=== PATIENT | male | born 1970 | race Hispanic/Latino ===

== ENCOUNTER 2018-09-19 16:24 | Inpatient (IN) | payer MEDICARE ==
--- NOTE | 2018-09-19 16:48 | C.PDOC ---
History Of Present Illness 48 y/o male presents to ED requesting detox from ETOH. Patient reports last drink was last night and denies chest pain, nausea, vomiting, diarrhea, SI/HI or any other complaints at this time. ekg 73, nsr, no stemi pending ASA and tylenol level, pt is medically clear labs unremarkable medically clear No signs of etoh withdrawal. appreciate consult w/ PES: to admit to Dr. Dewey Time Seen by Provider: 09/19/18 16:48 Chief Complaint (Nursing): Substance Abuse History Per: Patient History/Exam Limitations: no limitations Onset/Duration Of Symptoms: Waxing/Waning Current Symptoms Are (Timing): Still Present Suicide/Self Injury Attempted (Context): None Modifying Factor(s): Alcohol Past Medical History Reviewed: Historical Data, Nursing Documentation, Vital Signs Vital Signs: Last Vital Signs Temp 98.8 F 09/19/18 16:42 Pulse 96 H 09/19/18 16:42 Resp 19 09/19/18 16:42 BP 159/97 H 09/19/18 16:42 Pulse Ox 95 09/19/18 16:42 - Medical History PMH: COPD, Seizures Surgical History: No Surg Hx Family History: States: No Known Family Hx - Social History Hx Alcohol Use: Yes Hx Substance Use: Yes - Immunization History Hx Tetanus Toxoid Vaccination: No Hx Influenza Vaccination: Yes Hx Pneumococcal Vaccination: No Review Of Systems Constitutional: Negative for: Fever, Chills Respiratory: Negative for: Cough, Shortness of Breath Skin: Negative for: Rash Psych: Positive for: Other (substance abuse). Negative for: Anxiety, Suicidal ideation Physical Exam - Physical Exam Appears: Non-toxic, No Acute Distress Skin: Warm, Dry, No Rash Head: Atraumatic, Normacephalic Eye(s): bilateral: Normal Inspection, PERRL, EOMI Ear(s): Bilateral: Normal Oral Mucosa: Moist Tongue: Normal Appearing Lips: Normal Appearing Neck: Normal ROM, Supple, Other (no meningeal signs) Cardiovascular: Rhythm Regular Respiratory: Normal Breath Sounds, No Rales, No Rhonchi, No Wheezing Gastrointestinal/Abdominal: Soft, No Tenderness, No Guarding, No Rebound Extremity: Normal ROM, Capillary Refill (<2 seconds) Neurological/Psych: Oriented x3, Normal Speech, Normal Cognition ED Course And Treatment - Laboratory Results Result Diagrams: 09/19/18 18:24 11/09/18 18:24 O2 Sat by Pulse Oximetry: 95 (RA) Pulse Ox Interpretation: Normal Medical Decision Making Medical Decision Making: Patient pre screened, pending medical clearance for detox admission. Disposition - Disposition Disposition: HOSPITALIZED Disposition Time: 18:58 Condition: GOOD - Clinical Impression Clinical Impression: Alcohol abuse - Scribe Statement The provider has reviewed the documentation as recorded by the Benjaminibema Ann All medical record entries made by the Letty were at my direction and personally dictated by me. I have reviewed the chart and agree that the record accurately reflects my personal performance of the history, physical exam, medical decision making, and the department course for this patient. I have also personally directed, reviewed, and agree with the discharge instructions and disposition.
[2018-09-19 18:29] LABS: BASO % 0.6 % (0.0-2.0); EOS # 0.1 K/uL (0.0-0.7); HEMOGLOBIN 13.2 g/dL (12.0-18.0); LYMPH # 1.8 K/uL (1.0-4.3); LYMPH % 32.1 % (20.0-40.0); MEAN CELL VOLUME 90.2 fL (80.0-94.0); MEAN CORPUSCULAR HEMOGLOBIN 31.8 pg (27.0-31.0); MEAN CORPUSCULAR HGB CONC 35.3 g/dL (33.0-37.0); MEAN PLATELET VOLUME 7.8 fL (7.2-11.7); MONO # 0.4 K/uL (0.0-0.8); MONO % 7.9 % (0.0-10.0); NEUT # 3.3 K/uL (1.8-7.0); NEUT % 58.4 % (50.0-75.0); NRBC % 0.1 % (0.0-2.0); RBC 4.15 Mil/uL (4.40-5.90); WHITE BLOOD COUNT 5.7 K/uL (4.8-10.8)
[2018-09-19 18:31] LABS: SQUAMOUS EPITHIAL < 1 /hpf (0-5); URINE BILIRUBIN NEGATIVE (NEGATIVE); URINE BLOOD NEGATIVE (NEGATIVE); URINE CLARITY Clear (Clear); URINE COLOR Yellow (YELLOW); URINE GLUCOSE (UA) NORMAL (Normal); URINE LEUKOCYTE ESTERASE NEG Leu/uL (Negative); URINE PROTEIN NEGATIVE (NEGATIVE); URINE UROBILINOGEN NORMAL mg/dL (0.2-1.0)
[2018-09-19 18:43] LABS: ALB/GLOB RATIO 1.4 (1.0-2.1); ALBUMIN 4.1 g/dL (3.5-5.0); ALT/SGPT 37 U/L (21-72); AST/SGOT 50 U/L (17-59); BLOOD UREA NITROGEN 14 mg/dL (9-20); CALCIUM 9.1 mg/dl (8.6-10.4); GFR NON-AFRICAN AMERICAN > 60
[2018-09-19 18:55] LABS: BARBITURATES, UR NEGATIVE (NEGATIVE); BENZODIAZEPINES, UR NEGATIVE (NEGATIVE); OPIATES, UR NEGATIVE (NEGATIVE); PHENCYCLIDINE, UR NEGATIVE (NEGATIVE)
[2018-09-19 19:00] LABS: ACETAMINOPHEN < 10.0 ug/mL (10.0-30.0); SALICYLATE < 1.0 mg/dL 1
--- NOTE | 2018-09-19 20:00 | PCM.BM ---
<Madeleine Najera - Last Filed: 09/19/18 19:59> Treatment Plan Problems - Problems identified on initial assessmt Potential for alcohol withdrawal Date Initiated: 09/19/18 Time Initiated: 20:00 Assessment reference: NA Status: Active Treatment assets and liabiliti Patient Assests: ADL independent, negotiates basic needs, cognitively intact Patient Liabilities: substance abuse (Alcohol) - Milieu Protocol Maintain good personal hygiene: daily Encourage regular showers, daily Remind patient to perform daily oral care, daily Assist patient to perform ADL's Conduct patient checks and document Observation sheet: Q15 minutes Maintain personal safety: every shift Educate patient to report safety concerns to staff, every shift Monitor environment for contraband/sharps Medication safety: Monitor for expected outcome, potential side effects: every shift, Assess barriers to learning: every shift, Assess readiness for medication education: every shift <Amy Cunningham - Last Filed: 09/22/18 13:55> - Diagnosis (1) Alcohol use disorder, severe, dependence Status: Acute Interventions: 09/22/18 13:55 * Assess 7x/week regarding severity of withdrawal * Educate regarding risks, benefits, side effects and alternatives of medications * Use Motivational Interviewing for abstinence * Use CBT for relapse prevention * Medication management for withdrawal symptoms * Encourage medication assisted treatment * <Katia Earl - Last Filed: 09/22/18 14:12> Family Contact Family contact name: ex- Family contacted how many times per week?: 2 - Goals for Treatment Patient goals for treatment: Complete detox and transition to AA meetings. Discharge/Continuing Care - Education Needs Education Needs: Patient Medication, Patient Diagnosis/Disease Process, Patient Coping Skills, Patient Anger Management skills, Patient Placement options, Patient Community resources, Significant Other Diagnosis/Disease Process, Significant Other Placement options, Significant Other Community resources - Discharge Discharge Criteria: No longer exhibiting s/s of withdrawal, Reduction of target symptoms Discharge to:: Home, With Family - Treatment Team Participation Patient/Family/SO Statement: 09/22/18 14:11 "I wanna go to AA--I have a good support network. Also, I have to go back to work." Discussed with Family/SO: No Was Patient/Family/SO present at Treatment Team Meeting: Yes
[2018-09-20] MEDS: Divalproex 500 mg ER Tab PO SCH (15:44)
[2018-09-20] MEDS: Venlafaxine 150 mg ER Cap PO SCH (15:44)
[2018-09-21] MEDS: Venlafaxine 150 mg ER Cap PO SCH (09:14)
[2018-09-21] MEDS: Divalproex 500 mg ER Tab PO SCH (10:14)
--- NOTE | 2018-09-21 23:07 | PCM.PSYCH ---
Initial Psychiatric Evaluation - Initial Psychiatric Evaluation Legal Status: Capacity Chief Complaint (in patient's own words): I CAN'T SOP DRINKING I NEED TO GET MY LIFE BACK TOGETHER Patient's Reaction to Hospitalization: I CAME FROM [facility] TO GO INTO DETOX. SERIOUS GLAD THAT THERE WAS A BED AVAILABLE History of Present Illness and Precipitating Events: PT IS A 48 YEAR OLD MALE WHO LIVES WITH EX SPOUSE, WORKS A HOUSE PAINTERWHO DRINKS ALCOHOL HEAVILY. AT HIS WORST HE WOULD DRINK HALF A GALLON OF VODKA. PT LAST USED COCAINE ABOUT ONE YEAR AGO HESTARTEDDRINKING AGE 13 AND ALCOHOL BECAME A PROBLEM ABOUT AGE 18 PSYCHIATRIC HISTORY PT HAS BEEN ON PSYCHIATRIC FLOORS BUT MOSTLY FOR DETOX AND MANY IN [place]. PT'S LONGEST PERIOD OF SOBRIETY WAS 2AND 1/2 YEARS HE WENT TO . SOCIAL HISTORY NO CHILDREN E[facility]ED [facility] HAS 3 OLDER SISTERS MOTHER IS ALIVE FATHER IS FAMILY PSYCH HX MATERNAL GRANDMOTHER HAD DEPRESSION AND ANXIETY FAMILY SUBSTANCE ABUSE HISTORY MOTHER AND OLDER SISTER ARE IN RECOVERY LEGAL HX 11 DWIS Current Medications: Active Medications Generic Name Dose Route Start Last Admin Trade Name Freq PRN Reason Stop Dose Admin Divalproex Sodium 1,000 mg 09/20/18 14:45 09/21/18 10:14 Depakote Er PO 1,000 mg DAILY MARIA M Administration Levetiracetam 1,000 mg 09/20/18 18:00 09/21/18 17:47 Keppra PO 1,000 mg BID MARIA M Administration Lorazepam 1 mg 09/21/18 12:00 09/21/18 17:47 Ativan PO 1 mg Q6 MARIA M Administration Trazodone HCl 50 mg 09/19/18 20:21 09/19/18 21:03 Desyrel PO 50 mg HS PRN Administration Insomnia Venlafaxine HCl 300 mg 09/20/18 14:30 09/21/18 09:14 Effexor Xr PO 300 mg DAILY MARIA M Administration Past Psychiatric History - Past Psychiatric History Prior Professional Help: PSYCH ADMISSION MOSTLY FOR DETOX BUT TREATEDFOR MOOD DISORDER Pertinent Medical Hx (Current Medical&Sleep Prob, Allergies): Allergies Allergy/AdvReac Type Severity Reaction Status Date / Time No Known Allergies Allergy Unverified 09/19/18 16:46 Divalproex [Depakote ER] 500 mg PO DAILY 09/19/18 Hydroxyzine HCl 25 mg PO DAILY 09/19/18 Venlafaxine [Effexor XR] 150 mg PO DAILY 09/19/18 Review of Systems - Constitutional Constitutional: Malaise - EENT Eyes: UNREMARKABLE Ears: UNREMARKABLE Nose/Mouth/Throat: UNREMARKABLE - Cardiovascular Cardiovascular: UNREMARKABLE - Respiratory Respiratory: UNREMARKABLE - Gastrointestinal Gastrointestinal: Abdominal Pain - Genitourinary Genitourinary: UNREMARKABLE - Reproductive: Male Reproductive:Male: UNREMARKABLE - Musculoskeletal Musculoskeletal: Arthralgias, Myalgias - Integumentary Integumentary: UNREMARKABLE - Neurological Neurological: UNREMARKABLE - Psychiatric Psychiatric: UNREMARKABLE - Endocrine Endocrine: UNREMARKABLE - Hematologic/Lymphatic Hematologic: UNREMARKABLE Mental Status Examination - Personal Presentation Personal Presentation: Looks older than stated age - Affect Affect: Constricted - Motor Activity Motor Activity: Calm - Reliability in Providing Information Reliability in Providing Information: Good - Speech Speech: Organized, Relevant, Coherent - Mood Mood: Anxious - Formal Thought Process Formal Thought Process: No Impairment - Cognitive Functions Orientation: Person, Place, Situation, Time Sensorium: Alert Attention/Concentration: Attentive Abstract Thinking: As evidence by abstract perception of proverbs Estimate of Intelligence: Above Average Memory: Recent intact, as evidence by: 3/3 object recall, Remote intact, as evidenced by: Ability to recall historical events - Risk Risk: Seizure, Withdrawal - Strength & Assets Inventory Strength & Assets Inventory: Intelligence, Education, Employment status - Limitations Limitations: Other DSM 5 DX - DSM 5 DSM 5 Diagnosis: ALCOHOL WITHDRAWAL ATIVAN TAPER ALCOHOL USE DISORDER SEVERE CBT MT GROUP MILIEU RECREATIONAL GROUPS SUPPORTIVE PSYCHOTHERAPY MOOD DISORDER EFFEXOR DEPAKOTE VISTARIL - Recommended/Plan of Treatment Treatment Recommendations and Plan of Treatment: SEE ABOVE Projected ELOS: 6 DAYS Prognosis: GOOD Discharge Plan and Discharge Criteria: NO ACUTE SIGNS OF WITHDRAWAL - Smoking Cessation Smoking Cessation Initiated: No
--- NOTE | 2018-09-21 23:28 | PCM.PYCHPN ---
Psychiatric Progress Note - Psychiatric Progress Note Patient seen today, length of contact: 16 MIN Patient Chief Complaint: I FEEL BETTER BUT I AM HAVING THE WEIRDEST DREAMS Problems Identified/Issues Discussed: PT SEEN AND EXAMINED DISCUSSED WITH STAFF DISCUSSED WITH PT AFTER CARE POSSIBILITIES Medical Problems: NOTHING ACUTE Diagnostic Results: REVIEWED DSM 5 Symptoms Update: ANXIETY Medication Change: Yes (ATIVAN 1 MG PO Q6 HRS) Medical Record Reviewed: Yes Mental Status Examination - Cognitive Function Orientation: Person, Place, Situation, Time Memory: Intact Attention: WNL Concentration: WNL Association: WNL Fund of Knowledge: WNL - Mood Mood: Anxious - Affect Affect: Constricted - Speech Speech: Appropriate - Formal Thought Process Formal Thought Process: No Impairment - Suicidal Ideation Suicidal Ideation: No - Homicidal Ideation Homicidal Ideation: No Goal/Treatment Plan - Goal/Treatment Plan Need for Continued Stay: Discharge may exacerbated symptoms Progress Toward Problem(s) and Goals/Treatment Plan: ALCOHOL WITHDRAWAL ATIVAN ALCOHOL USEDISORDER ND CBT MOOD DISORDER DEPAKOTE EFFEXOR VISTAHERBL Estimated Date of D/C: 09/24/18 - Smoking Cessation Smoking Cessation Initiated: No
[2018-09-22] MEDS: Divalproex 500 mg ER Tab PO SCH (09:32)
[2018-09-22] MEDS: Venlafaxine 150 mg ER Cap PO SCH (09:32)
[2018-09-22] MEDS: Multiple Vitamins Tab PO SCH (10:46)
--- NOTE | 2018-09-22 13:57 | PCM.PYCHPN ---
Psychiatric Progress Note - Psychiatric Progress Note Patient seen today, length of contact: 17 min Patient Chief Complaint: "Withdrawing" Problems Identified/Issues Discussed: The pt is seen, chart reviewed, case discussed with staff. The pt is compliant with medications and reports no side-effects. Symptoms are improving but needs more time to stabilize. Pt attends groups and activities. Support given, psycho-education provided. After care discussed. Medication Change: Yes (librium taper) Medical Record Reviewed: Yes Mental Status Examination - Cognitive Function Orientation: Person, Place, Situation, Time Memory: Intact Attention: WNL Concentration: WNL Association: WNL Fund of Knowledge: WNL - Mood Mood: Anxious - Affect Affect: Constricted - Speech Speech: Appropriate - Formal Thought Process Formal Thought Process: No Impairment - Suicidal Ideation Suicidal Ideation: No - Homicidal Ideation Homicidal Ideation: No Goal/Treatment Plan - Goal/Treatment Plan Need for Continued Stay: Discharge may exacerbated symptoms, Severe functional impairment Progress Toward Problem(s) and Goals/Treatment Plan: Continue medications (switched to librium) Support and psychoeducation daily Attend groups and activities daily After care planning by LEIGHTON Add Naltrexone Estimated Date of D/C: 09/24/18
[2018-09-23] MEDS: Multiple Vitamins Tab PO SCH (09:11)
[2018-09-23] MEDS: Venlafaxine 150 mg ER Cap PO SCH (09:12)
[2018-09-23] MEDS: Divalproex 500 mg ER Tab PO SCH (09:12)
--- NOTE | 2018-09-23 14:11 | PCM.PYCHPN ---
Psychiatric Progress Note - Psychiatric Progress Note Patient seen today, length of contact: 16 min Patient Chief Complaint: "Not well" Problems Identified/Issues Discussed: The pt is seen, chart reviewed, case discussed with staff. Support and psychoeducation given, CBT and OH used briefly No new symptoms reported, improving slowly and needs more time No SEs from medications, risks discussed. After care discussed Medication Change: Yes (librium taper) Medical Record Reviewed: Yes Mental Status Examination - Cognitive Function Orientation: Person, Place, Situation, Time Memory: Intact Attention: WNL Concentration: WNL Association: WNL Fund of Knowledge: WNL - Mood Mood: Anxious - Affect Affect: Constricted - Speech Speech: Appropriate - Formal Thought Process Formal Thought Process: No Impairment - Suicidal Ideation Suicidal Ideation: No - Homicidal Ideation Homicidal Ideation: No Goal/Treatment Plan - Goal/Treatment Plan Need for Continued Stay: Discharge may exacerbated symptoms, Severe functional impairment Progress Toward Problem(s) and Goals/Treatment Plan: Continue medications (switched to librium) Support and psychoeducation daily Attend groups and activities daily After care planning by LEIGHTON Add Naltrexone Estimated Date of D/C: 09/24/18
[2018-09-23 14:27] VITALS: RESP 18
[2018-09-24 05:57] VITALS: PULSE 81
[2018-09-24 08:10] VITALS: BP 112/73; TEMP 98; O2SAT 100
--- NOTE | 2018-09-24 16:03 | PCM.PYCHDC ---
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 At his worst he would drink half a gallon of vodka. Pt last used cocaine about one year ago he started drinking age 13 and alcohol became a problem about age 18 Psychiatric history pt has been on psychiatric floors but mostly for detox and many in [place]. Pt's longest period of sobriety Was 2and 1/2 years he went to . Social history no children earned an associate degree in [place] pt has 3 older sisters mother is alive father is Family psych hx maternal grandmother had depression and anxiety Family substance abuse history mother and older sister are in recovery Legal hx 11 DWIs Consultations:: List each consultation separately and include: 1. Reason for request. 2. Findings. 3. Follow-up Summary of Hospital Course include:: 1. Description of specific treatment plan utilized for patients during their course of treatmen. 2. Summarize the time- course for resolution of acute symptoms and/or regressed behaviors. 3. Describe issues identified and worked on during hospitalization. 4. Describe medication utilized. 5. Describe medical problems identified and treated. 6. Reassessment of suicide risk Summary of Hospital Course: During the course of his stay, patient (pt) started progressively improving and he no longer remained anxious and irritable. He tolerated the withdrawal protocol very well. He didnt have any shakes, sweating, tremors or cramps or any other withdrawal symptoms upon discharge. He started attending groups and meetings and started socializing. He denied any feelings of hopelessness, helplessness, and worthlessness, denied any problem with the sleep or appetite, denied suicidal ideation or homicidal ideation. Pt denied any auditory or visual hallucinations. Patient remained calm and cooperative and remained compliant with the medications. Patient tolerated the detox medications very well and denied any side effects. - Final Diagnosis (DSM 5) Condition upon Discharge: GOOD DSM 5: Alcohol withdrawal Alcohol use disorder severe Mood disorder Disposition: HOME/ ROUTINE Follow-up Treatment Plan: Education: Pt was educated and counseled about the risks and benefits of taking and not taking medications. Pt was educated and counseled about the risks of drinking and abusing drugs. Pt was educated and counseled to go to the ER or call 911 if pt develop suicidal ideation or homicidal ideation, worsening of symptoms or severe side effects of the meds. Prescriptions/Medication Reconciliation: Divalproex [Depakote ER] 1,000 mg PO DAILY #30 ter levETIRAcetam [Keppra] 1,000 mg PO BID #60 tab Naltrexone [Revia] 50 mg PO DAILY #30 tab traZODone [Desyrel] 50 mg PO HS PRN #30 tab PRN Reason: Insomnia Venlafaxine [Effexor XR] 300 mg PO DAILY #60 cer
--- NOTE | 2018-09-25 17:32 | CARD ---
APPROVED REPORT Date of service: 09/19/2018 EKG Measurement Heart [id number] <Conclusion> Normal sinus rhythm Right bundle branch block Abnormal ECG
== END 2018-09-24 08:05 | disposition home or self-care (01) | DRG 895 ==
LOC: C.ER 16:24 → C.7D 19:02 → C.7T 09-22 07:18 → C.7D 09-22 07:19
PROVIDERS: ADMIT Psychiatry & Neurology Psychiatry; ATTEND Psychiatry & Neurology Psychiatry
PROC: HZ2ZZZZ Detoxification Services for Substance Abuse Treatment (ICD-10-PCS; principal; 2018-09-19)
PROC: HZ52ZZZ Individual Psychotherapy for Substance Abuse Treatment, Cognitive-Behavioral (ICD-10-PCS; 2018-09-19)
PROC: HZ59ZZZ Individual Psychotherapy for Substance Abuse Treatment, Supportive (ICD-10-PCS; 2018-09-19)
PROC: HZ56ZZZ Individual Psychotherapy for Substance Abuse Treatment, Psychoeducation (ICD-10-PCS; 2018-09-19)
PROC: HZ42ZZZ Group Counseling for Substance Abuse Treatment, Cognitive-Behavioral (ICD-10-PCS; 2018-09-19)
PROC: HZ46ZZZ Group Counseling for Substance Abuse Treatment, Psychoeducation (ICD-10-PCS; 2018-09-19)
PROC: GZHZZZZ Group Psychotherapy (ICD-10-PCS; 2018-09-19)
PROC: GZ58ZZZ Individual Psychotherapy, Cognitive-Behavioral (ICD-10-PCS; 2018-09-19)
PROC: GZ56ZZZ Individual Psychotherapy, Supportive (ICD-10-PCS; 2018-09-19)
DX: F10.230 Alcohol dependence with withdrawal, uncomplicated (principal); Y90.0 Blood alcohol level of less than 20 mg/100 ml; F39 Unspecified mood [affective] disorder; J44.9 Chronic obstructive pulmonary disease, unspecified; F41.9 Anxiety disorder, unspecified; Z81.8 Family history of other mental and behavioral disorders; R56.9 Unspecified convulsions; Z81.4 Family history of other substance abuse and dependence